=== PATIENT | female | born 1990 | race Caucasian/White ===

== ENCOUNTER → 2024-09-17 09:43 | Outpatient (REF) | payer BC, SELFPAY ==
[2024-09-24 17:42] LABS: HPV, High Risk Not Detected; HPV, High Risk Source Cervical
== END ==
LOC: CPAP 09:43
PROVIDERS: ATTENDING PHYSICIAN Student in an Organized Health Care Education/Training Program
DX: Z01.419 Encounter for gynecological examination (general) (routine) without abnormal findings (principal); Z11.51 Encounter for screening for human papillomavirus (HPV)
CPT/HCPCS: 87624; G0123

== ENCOUNTER → 2024-12-02 07:53 | Outpatient (REF) | payer BC, SELFPAY | LOC: HWRAD 07:53 | PROVIDERS: ATTENDING PHYSICIAN Student in an Organized Health Care Education/Training Program; FAMILY PHYSICIAN Internal Medicine | DX: R10.2 Pelvic and perineal pain (principal) | CPT/HCPCS: 76830; 76856 ==

== ENCOUNTER → 2025-07-11 10:11 | Outpatient (REF) | payer BC, SELFPAY | LOC: WDC 10:11 | PROVIDERS: ATTENDING PHYSICIAN Student in an Organized Health Care Education/Training Program; FAMILY PHYSICIAN Internal Medicine | DX: N63.20 Unspecified lump in the left breast, unspecified quadrant (principal) | CPT/HCPCS: 76642; 77062; 77066 ==